=== PATIENT | male | born 1985 | race Caucasian/White ===

== ENCOUNTER → 2020-04-12 | Outpatient (CLI) | payer OTHER ==
[~2020-04-12] MED LIST: AUGMENTIN 875-1 EACH PO; ERYTHROMYCIN OP1 GM OP; IBUPROFEN600 MG PO; IBUPROFEN800 MG PO; LODINE CAP 300300 MG PO; NORCO 5-325 TA1 EACH PO; NORFLEX 100 MG100 MG PO; PERCOCET 5-3251 EACH PO; PREDNISONE50 MG PO
== END ==
LOC: HEART 5 10:59
DX: R07.9 Chest pain, unspecified (principal)

== ENCOUNTER 2020-05-07 16:09 | Emergency (ER) | payer OTHER ==
[~2020-05-07 16:09] MED LIST changes: -AUGMENTIN 875-1 EACH PO; -PERCOCET 5-3251 EACH PO
[2020-05-07 16:32] LABS: HEMOGLOBIN 17.1 gm/dl (14.0-17.5); RED BLOOD COUNT 4.92 M/UL (4.20-5.50); WHITE BLOOD COUNT 23.1 K/UL (4.5-11.0)
[2020-05-07 16:52] LABS: BUN/CREATININE RATIO 14 (0-10)
[2020-05-07] MEDS ORDERED: PERCOCET 5-3251 EACH PO (17:51)
[2020-05-07] MEDS ORDERED: AUGMENTIN 875-1 EACH PO (17:51)
== END 2020-05-07 18:10 | disposition home or self-care (01) ==
LOC: ER1 16:09
PROVIDERS: Family Medicine
DX: S41.032A Puncture wound without foreign body of left shoulder, initial encounter (principal); D72.829 Elevated white blood cell count, unspecified; W34.00XA Accidental discharge from unspecified firearms or gun, initial encounter
CPT/HCPCS: 36415; 71045; 71260; 73030; 80053; 80307; 81001; 83605; 85025; 85610; 85730; 86850; 86900; 86901; 90715; 99284; G0480; J0690; J2270; J2405; Q9967